=== PATIENT | female | born 1995 | race Two or more races ===

== ENCOUNTER 2025-06-27 14:45 | Emergency (ER) | payer OTHER ==
[~2025-06-27] VITALS: Ht 162.6 cm; Wt 74.4 kg
[2025-06-27] MEDS ORDERED: CLARITIN10 MG (17:20)
[2025-06-27] MEDS ORDERED: SINGULAIR10 MG PO (17:20)
[2025-06-27] MEDS ORDERED: FLONASE16 GM NS (17:20)
[2025-06-27] MEDS ORDERED: METOCLOPRAMIDE HCL 5 MG/ML VIAL IM ONE (17:45)
[2025-06-27] MEDS ORDERED: METOCLOPRAMIDE HCL 5 MG/ML VIAL ONE (17:45)
[2025-06-27] MEDS ORDERED: DEXAMETHASONE SODIUM PHOSPHATE 4 MG/ML VIAL IM ONE (17:45)
[2025-06-27] MEDS ORDERED: KETOROLAC TROMETHAMINE 30 MG VIAL IM ONE (17:45)
[2025-06-27] MEDS ORDERED: KETOROLAC TROMETHAMINE 30 MG VIAL ONE (17:45)
[2025-06-27] MEDS ORDERED: DEXAMETHASONE SODIUM PHOSPHATE 4 MG/ML VIAL ONE (17:45)
[2025-06-27] MEDS ORDERED: EXCEDRIN EXTRA1 EAC2 PO (19:11)
[2025-06-27] MEDS ORDERED: PEPCID AC20 MG PO (19:12)
[2025-06-27] MEDS ORDERED: AMOX-CLAV 875-1 EACH PO (19:12)
== END 2025-06-27 22:32 | disposition home or self-care (01) ==
LOC: ER 14:46
DX: G43.909 Migraine, unspecified, not intractable, without status migrainosus (principal); Z88.2 Allergy status to sulfonamides; Z91.013 Allergy to seafood; R42 Dizziness and giddiness; R11.0 Nausea